=== PATIENT | female | born 1980 | race Caucasian/White ===

== ENCOUNTER 2022-02-08 07:09 | Emergency (ER) | payer OTHER ==
[~2022-02-08] VITALS: Ht 160 cm; Wt 81.6 kg
--- NOTE | 2022-02-08 07:23 | NUR ---
DR SPRINGER AT BEDSIDE FOR EVALUATION.
[2022-02-08] MEDS ORDERED: KETOROLAC TROMETHAMINE 30 MG INJ ONE (07:29)
[2022-02-08] MEDS ORDERED: KETOROLAC TROMETHAMINE 30 MG INJ IM ONE (07:30)
[2022-02-08 07:44] LABS: HEMATOCRIT 38.4 % (31.2-41.9); MEAN CORPUSCULAR HEMOGLOBIN 30.9 uug (24.7-32.8); MEAN CORPUSCULAR VOLUME 88.1 fL (75.5-95.3); PLATELET COUNT (AUTO) 219 K/uL (179-408)
[2022-02-08 07:57] LABS: CREATININE 0.8 mg/dL (0.6-1.3); POTASSIUM 3.5 mmol/L (3.5-5.1)
[2022-02-08] MEDS ORDERED: HYDROCODONE/APAP 5-325MG TABLET PO ONE (08:30)
[2022-02-08] MEDS ORDERED: HYDROCODONE/APAP 5-325MG TABLET ONE (08:41)
[2022-02-08] MEDS ORDERED: NAPR500T6 PO (08:44)
--- NOTE | 2022-02-08 09:44 | NUR ---
PT REPORTS TAKING ONLY INSULIN FOR MEDICATION - SHE DOESN'T KNOW NAME OF MEDICATION.
[2022-02-08] MEDS ORDERED: MORPHINE SULFATE 4 MG/1 ML DISP.SYRIN IV ONE (11:30)
[2022-02-08] MEDS ORDERED: MORPHINE SULFATE 4 MG/1 ML DISP.SYRIN ONE (11:41)
[2022-02-08 15:04] VITALS: BP 138/79
== END 2022-02-08 15:05 | disposition home or self-care (01) ==
LOC: ER 07:13
DX: S76.312A Strain of muscle, fascia and tendon of the posterior muscle group at thigh level, left thigh, initial encounter (principal); W01.0XXA Fall on same level from slipping, tripping and stumbling without subsequent striking against object, initial encounter; Y92.524 Gas station as the place of occurrence of the external cause; Y99.0 Civilian activity done for income or pay; Z20.822 Contact with and (suspected) exposure to COVID-19; R26.89 Other abnormalities of gait and mobility
CPT/HCPCS: 36415; 72192; 73502; 80048; 84702; 85025; 87426; 96372; 96374; 99284; J1885; J2270; A4663